=== PATIENT | female | born 1980 | race Caucasian/White ===

== ENCOUNTER 2019-07-18 07:19 | Day surgery (SDC) | payer BC ==
[~2019-07-18] VITALS: Ht 167.6 cm; Wt 68.0 kg
[2019-07-18] MEDS ORDERED: SKIN ADHESIVE 0.7 GM EA TOP ONE (08:27)
[2019-07-18] MEDS ORDERED: BUPIVACAINE HCL/PF 0.25% (2.5MG/ML) 10ML ONE (08:27)
[2019-07-18] MEDS ORDERED: VASOPRESSIN 20 UNIT/ML 1ML ONE (08:28)
[2019-07-18] MEDS ORDERED: LACTATED RINGERS 1,000 ML IV SCH (08:30)
[2019-07-18 08:40] LABS: BASOPHILS % 0.4 % (0.0-2.0); HEMATOCRIT. 39.2 % (36.0-48.0); HEMOGLOBIN. 13.5 g/dL (12.0-16.0); LYMPHOCYTES % 26.9 % (20.0-50.0); MEAN CORPUSCULAR HEMOGLOBIN 30.3 pg (28.0-32.0); MEAN CORPUSCULAR VOLUME 87.9 fL (81.0-99.0); MONOCYTES % 10.7 % (2.0-8.0); PLATELET 240 x1000/uL (130-400); RED BLOOD CELL COUNT 4.47 mill/uL (4.2-5.4); RED CELL DISTRIBUTION WIDTH 12.7 % (11.6-14.6)
[2019-07-18 08:44] LABS: CHLORIDE 105 mEq/L (98-107)
[2019-07-18 08:46] LABS: INR 0.9; PARTIAL THROMBOPLASTIN TIME 27.6 sec (23.4-31.0); PROTHROMBIN TIME 10.2 sec (9.6-11.0)
[2019-07-18 08:51] LABS: CLARITY URINE CLEAR (CLEAR); COLOR URINE YELLOW (YELLOW); KETONES URINE NEGATIVE (NEGATIVE); LEUKOCYTE ESTERASE URINE 1+ (NEGATIVE); NITRITE URINE NEGATIVE (NEGATIVE); OCCULT BLOOD URINE NEGATIVE (NEGATIVE); PROTEIN URINE NEGATIVE (NEGATIVE); SPECIFIC GRAVITY URINE 1.023 (1.005-1.030); UROBILINOGEN URINE 0.2 E.U./dL (0.2-1.0)
[2019-07-18 09:13] LABS: UCG SCREEN NEGATIVE
[2019-07-18] MEDS ORDERED: MEPERIDINE HCL/PF 25MG/ML CPJ IV PRN (10:30)
[2019-07-18] MEDS ORDERED: FENTANYL CITRATE/PF 50MCG/ML 2ML VIAL IV PRN (10:30)
[2019-07-18] MEDS ORDERED: ONDANSETRON HCL 4MG/2ML INJ IV PRN (10:30)
[2019-07-18] MEDS ORDERED: HYDROMORPHONE HCL/PF 2MG/ML CPJ IV PRN (10:30)
== END 2019-07-18 14:00 | disposition home or self-care (01) ==
LOC: OR 07:19
PROVIDERS: ATTEND Obstetrics & Gynecology
DX: N83.8 Other noninflammatory disorders of ovary, fallopian tube and broad ligament (principal)
CPT/HCPCS: 36415; 58661; 71045; 80048; 81003; 81025; 85025; 85610; 85730; 86850; 86900; 86901; 88304; 93005; J0690; J1100; J1885; J2250; J2704; J2710; J3010; J3490